=== PATIENT | male | born 1945 | race Caucasian/White ===

== ENCOUNTER → 2017-01-20 | Outpatient (CLI) | payer MEDICARE, BC ==
[~2017-01-20] MED LIST: ACTOS PO; APRESOLINE PO; ASPIRIN PO; CARTIA XT240 M1 PO; ELIQUIS5 MG PO; GLUCOTROL XL PO; LASIX20 MG PO; LIPITOR PO; LOPRESSOR PO; LOTREL 5/10 MG1 CAP PO; METOPROLOL SUCC50 MG PO; NOVOLOG FL100 UNIT/1 SUBQ; PACERONE400 MG PO; SODIUM BICARBO650 MG PO; TOUJEO SOL300 UNIT/1; TRILIPIX PO
--- NOTE | ~2017-01-20 | EKG ---
PATIENT: GUSTAVO MAZARIEGOS UNIT #: [id number] Ventricular Rate: 86 BPM Atrial Rate: 68 BPM QRS Duration: 96 ms Q-T Interval: 376 ms QTC Calculation(Bezet): 449 ms Calculated R [place]: 42 degrees Calculated T [place]: 16 degrees Diagnosis Line: Atrial fibrillation Diagnosis Line: Abnormal ECG Diagnosis Line: No previous ECGs available Diagnosis Line: Confirmed by LUAN LORENZO MD ([id number]) on Diagnosis Line: 01/20/2017 3:40:23 PM INTERPRETING MDNate SANCHEZ
[2017-01-20 12:44] LABS: HEMOGLOBIN 13.5 gm/dL (13.0-16.0); MEAN CELL VOLUME 82.4 FL (83-96); MEAN CORPUSCULAR HEMOGLOBIN 26.4 PG (28-34); MEAN CORPUSCULAR HGB CONC 32.1 g/dL (30-36); MEAN PLATELET VOLUME 9.3 FL (6.5-11.5); RED BLOOD COUNT 5.09 X10e (3.90-5.60); RED CELL DISTRIBUTION WIDTH 15.2 % (11.0-15.5); WHITE BLOOD COUNT 7.3 X10e3 (4.0-10.5)
[2017-01-20 12:55] LABS: INR 1.1; PARTIAL THROMBOPLASTIN TIME 28.7 SECONDS (23.5-31.3); PROTHROMBIN TIME (PATIENT) 11.4 SECONDS (9.6-11.5)
[2017-01-20 13:13] LABS: BUN/CREATININE RATIO 19.37; CALCIUM SERUM 9.6 mg/dL (8.4-10.2); CREATININE SERUM 1.6 mg/dL (0.6-1.4); GLOM FILT RATE Estimated 42.7 mL/min (>60)
[2017-01-20 13:22] LABS: POTASSIUM 5.5 mmol/L (3.5-5.1)
== END | disposition home or self-care (01) ==
LOC: CCVL 12:08
PROVIDERS: Internal Medicine Cardiovascular Disease
DX: I25.10 Atherosclerotic heart disease of native coronary artery without angina pectoris (principal); I25.82 Chronic total occlusion of coronary artery; Z95.1 Presence of aortocoronary bypass graft; I11.0 Hypertensive heart disease with heart failure; I50.20 Unspecified systolic (congestive) heart failure; I48.91 Unspecified atrial fibrillation; E78.5 Hyperlipidemia, unspecified; E11.9 Type 2 diabetes mellitus without complications; Z79.4 Long term (current) use of insulin; C44.92 Squamous cell carcinoma of skin, unspecified; Z79.82 Long term (current) use of aspirin; E66.9 Obesity, unspecified
CPT/HCPCS: 36415; 80048; 85027; 85610; 85730; 93005; C1769; C1887; C1894; J1644; J2250; J3010

== ENCOUNTER → 2017-02-03 | Outpatient (CLI) | payer MEDICARE, BC ==
[2017-02-03 10:19] LABS: BUN/CREATININE RATIO 17.64; CALCIUM SERUM 9.3 mg/dL (8.4-10.2); CREATININE SERUM 1.7 mg/dL (0.6-1.4); GLOM FILT RATE Estimated 39.7 mL/min (>60)
== END | disposition home or self-care (01) ==
LOC: CLAB 08:36
PROVIDERS: Internal Medicine Cardiovascular Disease
DX: N28.9 Disorder of kidney and ureter, unspecified (principal)
CPT/HCPCS: 36415; 80048

== ENCOUNTER → 2017-03-31 | Outpatient (CLI) | payer MEDICARE, BC ==
--- NOTE | ~2017-03-31 | EKG ---
PATIENT: GUSTAVO MAZARIEGOS UNIT #: [id number] Ventricular Rate: 50 BPM Atrial Rate: 50 BPM P-R Interval: 192 ms QRS Duration: 106 ms Q-T Interval: 518 ms QTC Calculation(Bezet): 472 ms P [place]: 92 degrees Calculated R [place]: 61 degrees Calculated T [place]: 70 degrees Diagnosis Line: Sinus bradycardia Diagnosis Line: Otherwise normal ECG Diagnosis Line: When compared with ECG of 20-JAN-2017 12:46, Diagnosis Line: Sinus rhythm has replaced Atrial fibrillation Diagnosis Line: Vent. rate has decreased BY 36 BPM Diagnosis Line: Nonspecific T wave abnormality no longer evident Diagnosis Line: in Inferior leads Diagnosis Line: Confirmed by MAURA FLETCHER, LUAN ([id number]) on Diagnosis Line: 04/01/2017 8:54:46 AM INTERPRETING MD: LAURA
== END | disposition home or self-care (01) ==
LOC: CCVL 08:27
DX: I48.91 Unspecified atrial fibrillation (principal)
CPT/HCPCS: 93005